=== PATIENT | female | born 1950 | race Two or more races ===

== ENCOUNTER 2016-08-09 13:46 | Emergency (ER) | payer OTHER, MEDICAID ==
[2016-08-09 14:07] VITALS: RESP 16
--- NOTE | 2016-08-09 15:31 | EDPHY ---
H & P Stated Complaint: n/v,diarrhea,cough for 4 days Time Seen by Provider: 08/09/16 15:29 - Personal History Current Tetanus Diphtheria and Acellular Pertussis (TDAP): Unsure - Medical/Surgical History Other PMH: hypothyroid,htn,niddm. uti dx 07/2016 - Social History Smoking Status: Never smoked Constitutional: Initial Vital Signs Temperature (C) 37.3 C 08/09/16 14:04 Heart Rate 97 08/09/16 14:04 Respiratory Rate 16 08/09/16 14:04 Blood Pressure 107/71 08/09/16 14:04 O2 Sat (%) 93 08/09/16 14:04 O2 Delivery Mode Room Air Allergies/Adverse Reactions: cephalexin monohydrate [From bMobilized] Allergy (Verified 08/09/16 14:01) Home Medications: Medication Instructions Recorded Amlodipine Besylate 08/09/16 Hydrochlorothiazide 08/09/16 Levothyroxine 08/09/16 Losartan Potassium 08/09/16 Macrobid 08/09/16 Meloxicam 08/09/16 Metformin HCl ER 08/09/16 Metoprolol Tartrate 08/09/16 Ondansetron Odt [Zofran Odt 4 mg 4 mg PO Q4 PRN #10 tab 08/09/16 (RX)] Pantoprazole Sodium 08/09/16 Pravastatin Sodium 08/09/16 Sulfamethox/Tmp 800/160 mg 1 tab PO BID #14 tab 08/09/16 [Bactrim Ds] Medical Decision Making ED Course/Re-evaluation: CHIEF COMPLAINT: Vomiting, diarrhea HISTORY OF PRESENT ILLNESS: The patient is a 66 y/o female complaining of bilious vomiting onset Friday, 3 days ago, subsequently followed by diarrhea. She has continued to vomit since then including one episode this morning. Her diarrhea has been urgent enough that she was unable to make it out of her bed to get to the bathroom. She has been unable to eat since symptom onset. She denies pertinent medical history. Only abdominal surgery was laparoscopic ovary surgery. REVIEW OF SYSTEMS: A 10 point review of systems was performed and is negative with the exception of the elements mentioned in the history of present illness. PHYSICAL EXAM: HR, BP, O2 Sat, RR. Temp noted General Appearance: Alert, well hydrated, appropriate, and non-toxic appearing. Head: Atraumatic without scalp tenderness or obvious injury Eyes: Pupils equal, round, reactive to light and accommodation, EOMI, no trauma , no injection. Ears: Clear bilaterally, no perforation, normal landmarks Nose: Atraumatic, no rhinorrhea, clear. Throat: There is no erythema or exudates, no lesions, normal tonsils, mucus membranes moist. Neck: Supple, 2+ carotid upstroke, nontender, no lymphadenopathy. Respiratory: No retractions, no distress, no wheezes, and no accessory muscle use. Lungs are clear to auscultation bilaterally. Cardiovascular: Regular rate and rhythm, no murmurs, rubs, or gallops. Bilateral carotid, radial, dorsalis pedis, and posterior tibial pulses intact. Good capillary refill all extremities. Gastrointestinal: Abdomen is soft, mild LLQ tenderness, non-distended, no masses, no rebound, no guarding, no peritoneal signs. Musculoskeletal: Normal active ROM of all extremities, atraumatic. Neurological: Alert, appropriate, and interactive. The patient has normal DTRs and non-focal cranial nerves, motor, sensory, and cerebellar exam. Skin: No rashes, good turgor, no nodules on palpation. Past medical history: Denies Past surgical history: laparoscopic ovary surgery Family history: Noncontributory Social history: DIAGNOSTICS/PROCEDURES/CRITICAL CARE TIME: Study: CT of the Abdomen/Pelvis Indication: Diarrhea, LLQ pain Results: CT scan of the abdomen was obtained. The results of the study are 1. Mild patchy enhancement to both kidneys, left greater than right, with mild perinephric stranding around the left kidney. Possible pyelonephritis. 2. Mild fatty infiltration of the liver. 3. Mild multilevel degenerative change lumbar spine. The study was read by the radiologist, Dr. Cisneros. I viewed the images myself on the PACS system. DIFFERENTIAL DIAGNOSIS: The differential diagnosis for the patient's nausea, vomiting, and diarrhea included but was not limited to UTI, diverticulitis, gastroenteritis, gastritis, appendicitis, and medication side effect. MEDICAL DECISION MAKING: This is an otherwise healthy 66 y/o female presenting with a 3-day history of nausea, vomiting, and diarrhea. She describes bilious vomiting that has continued this morning and urgent diarrhea. She has some mild LLQ tenderness on exam and is afebrile. Plan for IV fluids, labs, and CT abdomen to rule out diverticulitis. 4mg IV Zofran and 1L IV NS administered. Labs show low Na, Cl, and K, likely related to patient's vomiting and diarrhea. We will continue to hydrate her and reevaluate. CT and UA pending. CT shows some stranding around the kidney that may indicate pyelonephritis. UA indicates UTI. Patient will be discharged on Bactrim, as she is allergic to Keflex, with a script for Zofran and general gastroenteritis instructions. I've recommended following up with her PCP as needed. She is comfortable with this plan. Return precautions given. - Data Points Laboratory Results: Laboratory Results 08/09/16 15:30 08/09/16 15:30 08/09/16 08/09/16 08/09/16 18:13 15:39 15:30 WBC 17.24 H 10^3/uL (3.80-9.50) RBC 4.80 10^6/uL (4.18-5.33) Hgb 15.0 g/dL (12.6-16.3) Hct 41.3 % (38.0-47.0) MCV 86.0 fL (81.5-99.8) MCH 31.3 pg (27.9-34.1) MCHC 36.3 g/dL (32.4-36.7) RDW 12.6 % (11.5-15.2) Plt Count 193 10^3/uL (150-400) MPV 11.4 fL (8.7-11.7) Neut % (Auto) 87.6 H % (39.3-74.2) Lymph % (Auto) 3.9 L % (15.0-45.0) [place] % (Auto) 7.5 % (4.5-13.0) Eos % (Auto) 0.0 L % (0.6-7.6) Baso % (Auto) 0.3 % (0.3-1.7) Nucleat RBC Rel Count 0.0 % (0.0-0.2) Absolute Neuts (auto) 15.08 H 10^3/uL (1.70-6.50) Absolute Lymphs (auto) 0.68 L 10^3/uL (1.00-3.00) Absolute Monos (auto) 1.30 H 10^3/uL (0.30-0.80) Absolute Eos (auto) 0.00 L 10^3/uL (0.03-0.40) Absolute Basos (auto) 0.06 10^3/uL (0.02-0.10) Absolute Nucleated RBC 0.00 10^3/uL (0-0.01) Immature Gran % 0.7 % (0.0-1.1) Immature Gran # 0.12 H 10^3/uL (0.00-0.10) Sodium 127 L mEq/L (134-144) Potassium 3.3 L mEq/L (3.5-5.2) Chloride 87 L mEq/L (97-110) Carbon Dioxide 25 mEq/l (22-31) Anion Gap 15 mEq/L (8-16) BUN 26 H mg/dL (7-23) Creatinine 1.1 H mg/dL (0.6-1.0) Estimated GFR 50 Glucose 186 H mg/dL (70-100) Calcium 8.8 mg/dL (8.5-10.4) Total Bilirubin 2.7 H mg/dL (0.1-1.4) Conjugated Bilirubin 0.6 H mg/dL (0.0-0.5) Unconjugated Bilirubin 2.1 H mg/dL (0.0-1.1) AST 32 IU/L (14-46) ALT 36 IU/L (9-52) Alkaline Phosphatase 80 IU/L (38-126) Total Protein 6.7 g/dL (6.3-8.2) Albumin 3.6 g/dL (3.5-5.0) Lipase 37.0 IU/L (23-300) Urine Color YELLOW Urine Appearance CLEAR Urine pH 6.0 (5.0-7.5) Ur Specific [place] 1.024 (1.002-1.030) Urine Protein NEGATIVE (NEGATIVE) Urine Ketones TRACE H (NEGATIVE) Urine Blood 1+ H (NEGATIVE) Urine Nitrate NEGATIVE (NEGATIVE) Urine Bilirubin NEGATIVE (NEGATIVE) Urine Urobilinogen NEGATIVE EU (0.2-1.0) Ur Leukocyte Esterase NEGATIVE (NEGATIVE) Urine RBC 3-5 H /hpf (0-3) Urine WBC 5-10 H /hpf (0-3) Ur Epithelial Cells TRACE /lpf (NONE-1+) Ur Culture Indicated? NOT INDICATED (NI) Urine Glucose NEGATIVE (NEGATIVE) Influenza Typ A,B (DFA) NEGATIVE FOR FLU (NEGATIVE) Medications Given: Discontinued Medications Sodium Chloride (Ns) 1,000 mls @ 0 mls/hr IV ONCE ONE PRN Reason: Wide Open Stop: 08/09/16 15:47 Last Admin: 08/09/16 15:46 Dose: 1,000 mls Ondansetron HCl (Zofran) 4 mg IVP EDNOW ONE Stop: 08/09/16 15:43 Last Admin: 08/09/16 15:46 Dose: 4 mg Departure - Departure Disposition: Home, Routine, Self-Care Clinical Impression: Dehydration, Nausea & vomiting, Diarrhea, UTI (urinary tract infection), Gastroenteritis Condition: Good Instructions: Dehydration (ED), Acute Nausea and Vomiting (ED), Acute Diarrhea (ED), Urinary Tract Infection in Women (ED) Additional Instructions: 1. Increase fluid intake. 2. Take Bactrim as prescribed for UTI. 3. Use Zofran as prescribed when needed for nausea and vomiting. 4. Use Imodium, available [id number], as directed on the packaging when needed for diarrhea. 5. Follow up with your primary care provider for symptoms not improved over the next 2-3 days. 6. Return to the ED for worsening of condition. Referrals: Jorden Miller [Doctor of Osteopathy] - As per Instructions Prescriptions: Sulfamethox/Tmp 800/160 mg [Bactrim Ds] 1 tab PO BID #14 tab Ondansetron Odt [Zofran Odt 4 mg (RX)] 4 mg PO Q4 PRN #10 tab PRN Reason: Nausea/Vomiting, Use 1st Report Scribed for: Felipe Felix Report Scribed by: bAbi Matos Date of Report: 08/09/16 Time of Report: 15:34
[2016-08-09] MEDS ORDERED: ONDANSETRON 4 MG/2 ML VIAL ONE (15:38)
[2016-08-09] MEDS ORDERED: ONDANSETRON 4 MG/2 ML VIAL IVP ONE (15:42)
[2016-08-09] MEDS ORDERED: NS 1,000 ML IV ONE (15:46)
[2016-08-09 15:55] LABS: % IMMATURE GRANULYOCYTES 0.7 % (0.0-1.1); ABSOLUTE IMMATURE GRANULOCYTES 0.12 10^3/uL (0.00-0.10); ADD DIFF? NO; ADD MORPH? NO; ADD SCAN? NO; ATYPICAL LYMPHOCYTE FLAG 0 (0-99); FRAGMENT RBC FLAG 0 (0-99); HEMATOCRIT 41.3 % (38.0-47.0); LEFT SHIFT FLG 30 (0-99); LIPEMIA HEMOLYSIS FLAG 90 (0-99); MEAN CELL HEMOGLOBIN 31.3 pg (27.9-34.1); MEAN CELL HEMOGLOBIN CONCENTR. 36.3 g/dL (32.4-36.7); MEAN PLATELET VOLUME 11.4 fL (8.7-11.7); PLATELET CLUMPS FLAG 0 (0-99); PLATELET COUNT 193 10^3/uL (150-400); RED CELL DISTRIBUTION WIDTH 12.6 % (11.5-15.2)
[2016-08-09 16:03] LABS: ALANINE AMINOTRANSFERASE 36 IU/L (9-52); ALBUMIN 3.6 g/dL (3.5-5.0); ALKALINE PHOSPHATASE 80 IU/L (38-126); ANION GAP 15 mEq/L (8-16); ASPARTATE AMINOTRANSFERASE 32 IU/L (14-46); BILIRUBIN,TOTAL 2.7 mg/dL (0.1-1.4); BILIRUBIN-CONJUGATED 0.6 mg/dL (0.0-0.5); BILIRUBIN-UNCONJUGATED 2.1 mg/dL (0.0-1.1); CALCIUM 8.8 mg/dL (8.5-10.4); CARBON DIOXIDE 25 mEq/l (22-31); CHLORIDE 87 mEq/L (97-110); CREATININE 1.1 mg/dL (0.6-1.0); GLOMERULAR FILTRATION RATE 50; GLUCOSE 186 mg/dL (70-100); POTASSIUM 3.3 mEq/L (3.5-5.2); SODIUM 127 mEq/L (134-144); TOTAL PROTEIN 6.7 g/dL (6.3-8.2)
[2016-08-09] MEDS ORDERED: IOPAMIDOL (ISOVUE-300) 100 ML BTL IV ONE (16:28)
--- NOTE | 2016-08-09 17:40 | CT ---
CT Scan of the Abdomen and Pelvis (With Contrast) Indication: Abdominal pain. Recent diagnosis of UTI. Nausea, vomiting, and diarrhea. Technique: 90 mL of Isovue-300 were given intravenously by machine power injection. [facility] was performed from the diaphragm to the symphysis pubis. Dose reduction techniques were utilized. Comparison: None. Findings: Abdomen: The lung bases are clear. There is mild diffuse decreased attenuation in the liver suggest ing fatty infiltration. No focal liver lesion. The gallbladder is unremarkable. The pancreas is at rophic but otherwise unremarkable. The spleen is unremarkable. Both adrenal glands are normal in si ze and appearance. There is patchy enhancement to both kidneys, left greater than right. There is m ild perinephric stranding around the left kidney. No evidence for hydronephrosis. No significant ab dominal lymphadenopathy. Pelvis: Multilevel degenerative disk and degenerative joint disease is seen in the lumbar spine. Th ere is evidence of mild atherosclerotic disease in the abdominal aorta, without evidence for aneurysm al dilatation. No significant free fluid in the pelvis. No evidence for a bladder calculus. No nasra dence for a small bowel obstruction. No evidence for diverticulitis. Impression: 1. Mild patchy enhancement to both kidneys, left greater than right, with mild perinephric stranding around the left kidney. Possible pyelonephritis. 2. Mild fatty infiltration of the liver. 3. Mild multilevel degenerative change lumbar spine. Results called and discussed with Felipe Felix M.D., at August 09, 2016 at 1726 hours.
[2016-08-09 18:47] LABS: COLOR YELLOW; LEUKOCYTE ESTERASE,URINE NEGATIVE (NEGATIVE); NITRITE,URINE NEGATIVE (NEGATIVE)
[2016-08-09] MEDS ORDERED: SULFAMETHOX/TMP 800/160 MG 1 TAB PO ONE (19:02)
[2016-08-09 19:17] VITALS: BP 112/58; PULSE 76; TEMP 98.8; O2SAT 91
== END 2016-08-09 19:17 | disposition home or self-care (01) ==
DX: K52.9 Noninfective gastroenteritis and colitis, unspecified (principal); N39.0 Urinary tract infection, site not specified; E86.0 Dehydration; B96.89 Other specified bacterial agents as the cause of diseases classified elsewhere; I10 Essential (primary) hypertension; E11.9 Type 2 diabetes mellitus without complications
CPT/HCPCS: 74177; 96361; 96374; 99285; J2405; Q9967